=== PATIENT | female | born 1980 | race African-American/Black ===

== ENCOUNTER 2018-12-18 09:07 | Inpatient (IN) | payer OTHER ==
[2018-12-18] MEDS ORDERED: LACTATED RINGERS 2,000 ML ONE (09:17)
[2018-12-18] MEDS ORDERED: PEPCID IV ONE (09:18)
[2018-12-18] MEDS ORDERED: BICITRA PO ONE (09:18)
[2018-12-18] MEDS ORDERED: REGLAN IV ONE (09:18)
[2018-12-18] MEDS: LACTATED RINGERS 1,000 ML IV SCH ×2 (09:40→10:23)
[2018-12-18 10:00] LABS: Basophils % (Auto) 0.4 % (0.0-1.8); Eosinophils % (Auto) 0.6 % (0.0-4.3); Hematocrit 33.4 % (30.3-42.9); Hemoglobin 10.9 gm/dl (10.1-14.3); Lymphocytes # (Auto) 1.5 K/mm3 (1.2-5.4); Lymphocytes % (Auto) 23.1 % (13.4-35.0); Mean Corpuscular HGB Conc 33 % (30-34); Mean Corpuscular Volume 84 fl (79-97); Monocytes # (Auto) 0.5 K/mm3 (0.0-0.8); Monocytes % (Auto) 6.8 % (0.0-7.3); Platelet Count 224 K/mm3 (140-440); Red Blood Count 3.98 M/mm3 (3.65-5.03); Red Cell Distribution Width 15.1 % (13.2-15.2)
[2018-12-18] MEDS ORDERED: PITOCin/NS 20 UNIT/1000ML DRIP 20 UNITS/1,000 ML BAG IV SCH ×2 (10:00→14:00)
[2018-12-18] MEDS ORDERED: ANCEF/STERILE WATER 2 GM/20 ML 2 GM/20 ML SYRINGE IV NR (10:00)
[2018-12-18] MEDS ORDERED: NACL 0.9% 500 ML 500 ML IV ONE (11:00)
[2018-12-18] MEDS ORDERED: PHENERGAN PR PRN (11:36)
[2018-12-18] MEDS ORDERED: ZOFRAN IV PRN ×2 (11:36→13:45)
[2018-12-18] MEDS ORDERED: PHENERGAN PO PRN (11:36)
[2018-12-18] MEDS ORDERED: NARCAN 0.4 MG/1 ML IV PRN ×2 (11:36→13:45)
[2018-12-18] MEDS ORDERED: DILAUDID IV PRN (11:36)
[2018-12-18] MEDS ORDERED: BENADRYL IV PRN (11:36)
--- NOTE | 2018-12-18 11:38 | Anesthesia Day of Surgery ---
Anesthesia Day of Surgery - Day of Surgery Patient Examined: Yes Patient H&P Reviewed: Yes Patient is NPO: Yes Beta Blockers: No Cardiac Clearance: No Pulmonary Clearance: No José's Test: N/A
--- NOTE | 2018-12-18 11:38 | Anesthesia Consultation ---
Anesthesia Consult and Med Hx - Airway Anesthetic Teeth Evaluation: Good, Caps, Crowns ROM Head & Neck: Adequate Mental/Hyoid Distance: Adequate Mallampati Class: Class I Intubation Access Assessment: Good - Pulmonary Exam CTA: Yes - Cardiac Exam Cardiac Exam: RRR - Pre-Operative Health Status ASA Pre-Surgery Classification: ASA2 Proposed Anesthetic Plan: Spinal - Pulmonary Hx Asthma: No COPD: No Hx Pneumonia: No - Cardiovascular System Hx Hypertension: No - Central Nervous System Hx Seizures: No Hx Psychiatric Problems: No - Endocrine Hx Renal Disease: No Hx End Stage Renal Disease: No Hx Hypothyroidism: No Hx Hyperthyroidism: No - Hematic Hx Anemia: No Hx Sickle Cell Disease: No - Other Systems Hx Alcohol Use: No
--- NOTE | 2018-12-18 11:51 | History and Physical Report ---
History of Present Illness Date of examination: 12/18/18 Date of admission: 12/18/18 09:07 Chief complaint: Here for elective section as per MFM at 36+5 wks with placenta previa. , per vaginam. History of present illness: LMP 04/05/2018. MEDARDO 01/10/2019.Late entry into care. AMA Complete placenta previa and a patient of [facility]. Past History Past Medical History: no pertinent history Past Surgical History: no surgical history Family/Genetic History: none Social history: no significant social history - Obstetrical History Expected Date of Delivery: 01/10/19 Actual Gestation: 36 Week(s) 5 Day(s) : 2 Para: 1 Hx # Term Pregnancies: 1 Number of Pregnancies: 0 Medications and Allergies Allergies Allergy/AdvReac Type Severity Reaction Status Date / Time No Known Allergies Allergy Verified 12/18/18 09:15 Home Medications Medication Instructions Recorded Confirmed Last Taken Type Vit-Fe Fumar-FA [ 1 tab PO QDAY 12/18/18 12/18/18 Unknown History Vitamin] Active Meds: Active Medications Diphenhydramine HCl (Benadryl) 12.5 mg IV Q2H PRN PRN Reason: Itching Hydromorphone HCl (Dilaudid) 0.5 mg IV Q5M PRN PRN Reason: Breakthrough Pain Oxytocin/Sodium Chloride (Pitocin/Ns 20 Unit/1000ml Drip) 20 units in 1,000 mls @ 0 mls/hr IV TITR PERRY Lactated Ringer's (Lactated Ringers) 1,000 mls @ 2,250 mls/hr IV PREOP PERRY Stop: 12/19/18 10:27 Last Admin: 12/18/18 10:23 Dose: 2,250 mls/hr Documented by: Cefazolin Sodium (Ancef/Sterile Water 2 Gm/20 Ml) 2 gm in 20 mls @ 80 mls/hr IV PREOP NR; Protocol Stop: 12/18/18 23:59 Naloxone HCl (Narcan 0.4 Mg/1 Ml) 0.2 mg IV Q2MIN PRN PRN Reason: Res Rate </= 8 or 02 SAT < 92% Ondansetron HCl (Zofran) 4 mg IV Q8H PRN PRN Reason: Nausea And Vomiting Promethazine HCl (Phenergan) 25 mg PO Q6H PRN PRN Reason: Nausea And Vomiting Promethazine HCl (Phenergan) 25 mg NC Q6H PRN PRN Reason: Nausea And Vomiting Sodium Chloride (Sodium Chloride Flush Syringe 10 Ml) 10 ml IV PRN NR Stop: 12/18/18 23:59 Review of Systems All systems: negative Constitutional: fever, chills, malaise, poor appetite - Vital Signs Vital signs: Vital Signs Pulse Pulse Ox 75 97 12/18/18 09:37 12/18/18 09:37 Temp Pulse Resp BP Pulse Ox 98.7 F 75 18 97 12/18/18 09:39 12/18/18 09:37 12/18/18 09:39 12/18/18 09:37 - Physical Exam Breasts: Positive: deferred Cardiovascular: Regular rate Lungs: Positive: Clear to auscultation Abdomen: Positive: normal appearance, soft, distention Genitourinary (Female): Positive: other Extremities: Positive: normal - Obstetrical FHR: auscultation normal, category 1 Uterine Contraction Pattern: Absent Results Result Diagrams: 12/18/18 09:40 Abnormal lab results 12/18/18 Range/Units 09:40 Crossmatch See Detail All other labs normal. Assessment and Plan Complete Placenta Previa, 36+5 wks,AMA, For delivery by elective c/section as per MFM. - Patient Problems (1) Current Visit: Yes Status: Acute Qualifiers: Weeks of gestation: 36 weeks Qualified Code(s): Z3A.36 - 36 weeks gestation of (2) Delivery by elective section Current Visit: Yes Status: Acute
[2018-12-18] MEDS ORDERED: SUBLIMAZE ONE (11:52)
[2018-12-18] MEDS ORDERED: NEO SYNEPHRINE/NS Syringe(OR USE) IV ONE ×2 (11:52→13:03)
[2018-12-18] MEDS ORDERED: ZOFRAN ONE (11:52)
[2018-12-18] MEDS ORDERED: SODIUM CHLORIDE FLUSH SYRINGE 10 ML IV NR ×2 (12:00→14:00)
[2018-12-18] MEDS ORDERED: LACTATED RINGERS 1,000 ML ONE ×2 (12:26→13:13)
[2018-12-18] MEDS ORDERED: NACL 0.9% IR ONE (12:40)
[2018-12-18] MEDS ORDERED: WATER FOR IRRIG STERILE IR ONE (12:40)
[2018-12-18] MEDS ORDERED: TORADOL ONE ×2 (12:44→13:11)
[2018-12-18] MEDS ORDERED: MYLICON PO PRN (13:45)
[2018-12-18] MEDS ORDERED: LANSINOH TP PRN (13:45)
[2018-12-18] MEDS ORDERED: TUCKS PAD TP PRN (13:45)
[2018-12-18] MEDS ORDERED: TYLENOL PO PRN (13:45)
[2018-12-18] MEDS ORDERED: D5LR 1,000 ML IV SCH (14:00)
--- NOTE | 2018-12-18 14:16 | Operative Report ---
Operative Report Operative Report: Date of surgery was 12/18/2018 Admitting diagnosis 1 advised maternal age 2 gestation at 36 weeks and 5 days 3. Complete placenta previa Procedure: Elective lower segment section. Surgeon: C.C.MD dylon Manager Technical Sales surgeon: Dk Corbin M.D. Anesthesiologist: Dk Llanes M.D. Anesthesia: Spinal block. Estimated blood loss: 1300 mL Complications: None Findings: Live baby girl, 5 lbs. 6 oz. both ovaries and fallopian tubes were grossly normal, the uterus was unremarkable gravid structure. The lower abdomen and pelvis where free of any peritoneal adhesions. The bowels that could be seen through the Pfannenstiel incision were grossly normal. Procedure in details: The patient was taken today are temperature. She was given spinal blockade and then placed in the straight supine position with slight left lateral tilt. Indwelling [place] scapula was instructed. The patient was then prepped and abdomen. The drapes were placed. A timeout was done. With the go ahead from the anesthesiologist surgery began with a Pfannenstiel incision placed into one of the creases in the suprapubic aspect. Incision was carried across the subcutaneous layer down to the fascia. The fascia was cut transversely with a scalpel and extended using the Gatica's scissors. The fascia was dissected free from the underlying recti abdominis muscle flaps using a combination of blunt and sharp dissection. The recti abdominis muscle flaps are in the midline to again access to the anterior parietal peritoneum. This structure was pinched up in between 2 nidhi of hemostats and after excluding any underlying viscera was divided. The laparotomy incision was widened by manual stretching. The bladder blade was applied. The utero vesicoperitoneal flap was cut transversely over the lower uterine segment. The lower uterine segment was noted to be very vascular I's and results of the placental implantation. The uterine incision was placed slightly higher than usual to avoid slicing into the placenta. The uterine cavity was entered of the initial scalpel cut by bluntly being through the decidual layer. The amniotic sac bulged and was ruptured with clear fluid. The head of was brought through the incision and delivered by fundal pressure. The airways were bulb suctioned again and with the mouth. The rest of the baby was delivered by combination of fundal pressure and gentle traction on the mandibles. The umbilical cord was clamped and divided. The baby was safely handed over to the pediatric team. The placenta was removed manually. Uterine cavity was explored and was empty of any placental remnants. The uterine incision was repaired in 1 layer with #0 Vicryl. Hemostasis was excellent. The line of incision on the uterus was inspected multiple times and hemostasis remained satisfactory. Blood and clots were cleared from the peritoneal cavity. The anterior parietal peritoneum was repaired with 0 Vicryl. The fascia was repaired with 0 Vicryl. The subcutaneous layer was hemostatic and the skin was closed subcuticularly with the Aristeo needle. All sponges and instruments were accounted for. The estimated blood loss was a generous 1300 mL. There were no complications. Patient was transferred in stable condition to the recovery room.
[2018-12-18] MEDS: TORADOL IV PRN (16:58)
--- NOTE | 2018-12-18 20:42 | Post Anesthesia Evaluation ---
- Post Anesthesia Evaluation Patient Participated: Yes Airway Patent: Yes Stable Respiratory Function: Yes Nausea/Vomiting: No Temp > 96.8F: Yes Pain Manageable: Yes Adequeate Hydration: Yes Anesthesia Complications: No Block Receding Appropriately: Yes Patient on Ventilator: No
[2018-12-18] MEDS: ANCEF/NS 1 GM/50 ML 1 GM/50 ML BAG IV SCH (21:46)
[2018-12-19] MEDS: TORADOL IV PRN (00:01)
[2018-12-19 01:39] LABS: Hematocrit 23.5 % (30.3-42.9)
[2018-12-19] MEDS: ANCEF/NS 1 GM/50 ML 1 GM/50 ML BAG IV SCH (04:14)
[2018-12-19] MEDS ORDERED: BOOSTRIX IM ONE (06:00)
[2018-12-19] MEDS ORDERED: M-M-R II VACCINE SUB-Q ONE (06:00)
[2018-12-19] MEDS: PRENATAL VITAMIN PO SCH (09:30)
[2018-12-19] MEDS: PERCOCET 5/325 PO PRN ×2 (09:30→17:03)
[2018-12-19] MEDS: FEOSOL PO SCH (09:30)
--- NOTE | 2018-12-19 10:04 | Progress Note ---
Assessment and Plan - Patient Problems (1) S/P section Current Visit: Yes Status: Acute Plan to address problem: Continue routine PP orders Anticipate d/c home in 24-48 hrs (2) Anemia Current Visit: Yes Status: Acute Qualifiers: Anemia type: other cause Other causes of anemia: acute posthemorrhagic Q ualified Code(s): D62 - Acute posthemorrhagic anemia Plan to address problem: Asymptomatic Infed 100 mg IM x 1 dose Continue po iron supplementation May d/c home in 24-48 hr is H/H stable Subjective - Subjective Date of service: 12/19/18 Principal diagnosis: S/P C/S; Anemia Interval history: See admission H & P and OB operative report Patient reports: appetite normal, voiding normally, pain well controlled (with medication), ambulating normally, no flatus, no bowel movement [place]: other (Reports that baby had a large amt of emesis noted, RN at bedside assessing infant), bottle feeding Objective - Vital Signs Latest vital signs: Vital Signs Temp Pulse Resp BP Pulse Ox 12/19/18 09:30 17 12/19/18 07:32 98.4 F 75 16 96/56 94 12/19/18 03:18 97.7 F 68 20 99/54 96 12/19/18 00:16 98.0 F 76 20 85/50 96 12/18/18 20:50 98.0 F 75 18 94/54 96 12/18/18 17:28 17 12/18/18 16:58 17 12/18/18 16:05 76 18 108/54 97 12/18/18 14:30 98.0 F 88 16 114/66 100 12/18/18 14:15 85 20 111/58 100 12/18/18 14:00 80 14 101/55 100 12/18/18 13:45 79 16 103/60 100 12/18/18 13:40 74 21 107/53 98 12/18/18 13:35 81 20 108/56 98 12/18/18 13:31 97.8 F 88 16 78/55 98 Intake and Output 12/18/18 12/19/18 12/19/18 23:59 07:59 15:59 Intake Total 290 240 Output Total 600 1250 Balance -310 -1010 Intake: IV 50 ANCEF/NS 1 GM/50 ML 1 gm 50 In 50 ml @ 100 mls/hr IV Q8H [facility] Rx#:[id number] Oral 240 Intake, Free Water 240 Output: Urine 600 1250 Indwelling Catheter 600 1150 Void 100 Other: Total, Intake Amount 240 Total, Output Amount 600 100 - Exam Breasts: Present: deferred Cardiovascular: Present: Regular rate Lungs: Present: Normal air movement Abdomen: Present: tenderness, normal bowel sounds Uterus: Present: fundal height below umbilicus (U-2) Extremities: Present: normal Deep Tendon Reflex Grade: Normal +2 Incision: Present: dressed (no shadow drainage or bleeding noted) - Labs Labs: Abnormal lab results 12/18/18 12/19/18 Range/Units 09:40 01:19 Hgb 8.0 L (10.1-14.3) gm/dl Hct 23.5 L D (30.3-42.9) % Crossmatch See Detail
[2018-12-19] MEDS: INFED IM NR ×2 (10:44→12:45)
[2018-12-19] MEDS: IBUPROFEN PO PRN ×2 (17:02→23:52)
[2018-12-20 06:23] LABS: Hemoglobin 8.9 gm/dl (10.1-14.3)
[2018-12-20] MEDS: PERCOCET 5/325 PO PRN ×2 (09:11→20:33)
[2018-12-20] MEDS: PRENATAL VITAMIN PO SCH (09:11)
[2018-12-20] MEDS: FEOSOL PO SCH (09:13)
--- NOTE | 2018-12-20 10:38 | Progress Note ---
Assessment and Plan A: POD #2 Asymptomatic Anemia P: Follow Routine PostOp Orders Continue FeSO4 as ordered D/C home in the AM RTO in One Week Subjective - Subjective Date of service: 12/20/18 Principal diagnosis: S/P C/S; Anemia Patient reports: appetite normal, voiding normally, pain well controlled, flatus, ambulating normally [place]: doing well, bottle feeding Objective - Vital Signs Latest vital signs: Vital Signs Temp Pulse Resp BP Pulse Ox 12/20/18 09:11 17 12/20/18 07:57 97.6 F 68 16 95/50 95 12/19/18 18:03 17 12/19/18 17:03 17 12/19/18 17:02 17 12/19/18 15:55 98.2 F 76 18 100/60 94 12/19/18 10:30 17 Intake and Output 12/19/18 12/20/18 12/20/18 22:59 06:59 14:59 Intake Total 1320 Balance 1320 Intake: Oral 1080 Intake, Free Water 240 Other: Total, Intake Amount 240 # Voids Void 1 - Exam Breasts: Present: normal Cardiovascular: Present: Regular rate Lungs: Present: Clear to auscultation, Normal air movement Abdomen: Present: normal appearance, soft, normal bowel sounds Uterus: Present: normal, firm, fundal height below umbilicus Extremities: Present: normal Incision: Present: normal, dry, intact - Labs Labs: Abnormal lab results 12/20/18 Range/Units 06:02 Hgb 8.9 L (10.1-14.3) gm/dl Hct 27.0 L (30.3-42.9) %
--- NOTE | 2018-12-20 10:40 | Discharge Summary ---
Providers - Providers Date of Admission: 12/18/18 09:07 Date of discharge: 12/21/18 Attending physician: AED MOORE MD Primary care physician: ADE MOORE MD Hospitalization Reason for admission: section Delivery: Procedure: primary low transverse Episiotomy: none Laceration: none Incision: normal, dry, intact Other procedures: none complications: none Discharge diagnosis: delivery baby: female Condition at discharge: Good Disposition: DC-01 TO HOME OR SELFCARE Plan - Provider Discharge Summary Activity: routine, no sex for 6 weeks, no heavy lifting 4 weeks, no strenuous exercise Diet: routine Instructions: routine Additional instructions: [] Smoking cessation referral if applicable(refer to patient education folder for contact #) [] Refer to [facility]'s [facility] Booklet Call your doctor immediately for: * Fever > 100.5 * Heavy vaginal bleeding ( >1 pad per hour) * Severe persistent headache * Shortness of breath * Reddened, hot, painful area to leg or breast * Drainage or odor from incision. * Keep incision clean and dry at all times and follow doctor's instructions regarding bathing/showering - Follow up plan Follow up: ADE MOORE MD [Primary Care Provider] - 7 Days
[2018-12-21] MEDS: IBUPROFEN PO PRN (06:02)
[2018-12-21] MEDS: PRENATAL VITAMIN PO SCH (10:36)
[2018-12-21] MEDS: FEOSOL PO SCH (10:36)
[2018-12-21 16:40] VITALS: BP 128/74
== END 2018-12-21 16:30 | disposition home or self-care (01) | DRG 786 ==
LOC: APU 09:07 → OB 15:18
PROVIDERS: ADMIT Obstetrics & Gynecology; ATTEND Obstetrics & Gynecology
PROC: 10D00Z1 Extraction of Products of Conception, Low, Open Approach (ICD-10-PCS; principal; 2018-12-18)
DX: O44.03 Complete placenta previa NOS or without hemorrhage, third trimester (principal); O60.14X0 Preterm labor third trimester with preterm delivery third trimester, not applicable or unspecified; D62 Acute posthemorrhagic anemia; Z37.0 Single live birth; Z3A.36 36 weeks gestation of pregnancy; O90.81 Anemia of the puerperium
CPT/HCPCS: 36415; 59025; 85014; 85018; 85025; 86592; 86706; 86850; 86900; 86901; 86920; 96360; 96361; 96374; G0378; J0690; J1750; J1885; J2370; J2405; J2590; J2765; J3010; J7120; J7121